=== PATIENT | female | born 2000 | race African-American/Black ===

== ENCOUNTER 2023-09-20 12:30 | Emergency (ER) | payer MEDICAID ==
[~2023-09-20] VITALS: Ht 162.6 cm; Wt 56.7 kg
[2023-09-20] MEDS ORDERED: FAMOTIDINE/PF INJ 20 MG/2 ML VIAL IV ONE (13:20)
[2023-09-20] MEDS ORDERED: MAG HYDROX/AL HYDROX/SIMETH 30 ML UDC ONE (13:21)
[2023-09-20] MEDS ORDERED: KETOROLAC TROMETHAMINE 15 MG/ML VIAL ONE (13:21)
[2023-09-20 13:22] LABS: APPEARANCE,URINE CLEAR (CLEAR); BILIRUBIN,URINE 1+ (NEGATIVE); BLOOD, URINE NEGATIVE Ery/uL (NEGATIVE); COLOR,URINE YELLOW (YELLOW); KETONES,URINE TRACE mg/dL (NEGATIVE); LEUKOCYTE ESTERASE ,URINE NEGATIVE (NEGATIVE); NITRITE, URINE NEGATIVE (NEGATIVE); PH,URINE 6.5 (5.0-8.0); PROTEIN,URINE NEGATIVE (NEGATIVE); UGLUCOSE NEGATIVE (NEGATIVE)
[2023-09-20 13:23] LABS: PREGNANCY TEST URINE QUAL NEGATIVE (NEGATIVE)
[2023-09-20] MEDS: IV NS 0.9% 1,000 ML BAG IV ONE (13:27)
[2023-09-20] MEDS: MAG HYDROX/AL HYDROX/SIMETH 30 ML UDC PO ONE (13:28)
[2023-09-20] MEDS: FAMOTIDINE/PF INJ 20 MG/2 ML VIAL IV ONE (13:28)
[2023-09-20] MEDS: KETOROLAC TROMETHAMINE 15 MG/ML VIAL IV ONE (13:31)
[2023-09-20 13:55] LABS: BASOPHILS % (AUTO) 0.4 % (0.0-2.0); EOSINOPHILS # (AUTO) 0.1 K/uL (0.0-0.7); EOSINOPHILS % (AUTO) 0.9 % (0.0-6.0); HEMATOCRIT 46 % (33-45); HEMOGLOBIN 15.2 g/dL (11.5-14.8); LYMPHOCYTES # (AUTO) 3.1 K/uL (0.8-4.8); LYMPHOCYTES % (AUTO) 44.5 % (20.0-44.0); MEAN CORPUSCULAR HEMOGLOBIN 31 PG (26.0-33.0); MEAN CORPUSCULAR HGB CONC 33 g/dl (31.0-36.0); MEAN CORPUSCULAR VOLUME 93 fL (82-100); MONOCYTES # (AUTO) 0.6 K/uL (0.1-1.30); MONOCYTES % (AUTO) 8.4 % (2.0-12.0); NEUTROPHILS # (AUTO) 3.2 K/uL (1.8-8.9); NEUTROPHILS % (AUTO) 45.8 % (43.0-81.0); PLATELET COUNT (AUTO) 200 K/uL (150-450); RED BLOOD CELL COUNT(AUTO) 4.93 MIL/uL (4.0-5.2); RED CELL DISTRIBUTION WIDTH 14.2 % (11.5-15.0)
[2023-09-20 14:05] LABS: CREATININE 0.8 mg/dL (0.6-1.3); POTASSIUM 3.6 mmol/L (3.5-5.1)
[2023-09-20 14:13] LABS: ALBUMIN 4.8 g/dL (3.4-5.0); BILIRUBIN,DIRECT 0.1 mg/dL (0.0-0.2); BILIRUBIN,TOTAL 0.5 mg/dL (0.2-1.0)
[2023-09-20] MEDS ORDERED: CT SWABBABLE VALVE TRANS SET 1 EA INFUS.SET MC ONE (14:20)
[2023-09-20] MEDS ORDERED: IOHEXOL-300 100 ML VIAL IV ONE (14:20)
[2023-09-20] MEDS ORDERED: IV NS 0.9% 250 ML IV ONE (14:20)
[2023-09-20] MEDS ORDERED: KETO10TA2 PO (16:21)
[2023-09-20] MEDS ORDERED: TRAM-351 PO (16:21)
[2023-09-20] MEDS ORDERED: ONDA4TAB11 PO (16:21)
[2023-09-20 16:47] VITALS: BP 120/67; TEMP 98.3; O2SAT 98
== END 2023-09-20 16:48 | disposition home or self-care (01) ==
LOC: ER 12:30
DX: N83.292 Other ovarian cyst, left side (principal); D25.9 Leiomyoma of uterus, unspecified; R10.32 Left lower quadrant pain; F10.10 Alcohol abuse, uncomplicated; F12.10 Cannabis abuse, uncomplicated; Z87.09 Personal history of other diseases of the respiratory system; Y90.9 Presence of alcohol in blood, level not specified
CPT/HCPCS: 99285; 74177; 96374; 76856; 96361; 96375; 85025; 80048; 83690; 80076; 84703; 81003; 36415; J3490; J7030; J7050; Q9967; J1885